=== PATIENT | male | born 1965 | race Caucasian/White ===

== ENCOUNTER 2017-01-27 15:17 | Emergency (ER) | payer OTHER ==
[2017-01-27 15:35] VITALS: BP 163/94
[2017-01-27] MEDS ORDERED: Lidocaine 1% 20 ML MDV INJECT ONE (15:36)
--- NOTE | 2017-01-27 15:42 | EDM.PDOC ---
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 DENIES ANY OTHER INJURY. 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 Constitutional: Reports: No Symptoms HEENT: Reports: No Symptoms Respiratory: Reports: No Symptoms Cardiovascular: Reports: No Symptoms Endocrine: Reports: No Symptoms GI/Abdominal: Reports: No Symptoms : Reports: No Symptoms Musculoskeletal: Reports: Hand Pain Skin: Reports: Wound (LACERATION TO RIGHT PALM) Neurological: Reports: No Symptoms Psychiatric: Reports: No Symptoms Hematologic/Lymphatic: Reports: No Symptoms Immunologic: Reports: No Symptoms ED EXAM, SKIN/RASH Exam: See Below Exam Limited By: No Limitations General Appearance: Alert, WD/WN, No Apparent Distress Throat/Mouth: Normal Inspection, Normal Oropharynx, No Airway Compromise Head: Atraumatic, Normocephalic Respiratory/Chest: No Respiratory Distress Extremities: Other (RIGHT PALM 4 cm linear laceration) Neurological: Alert, Oriented, Normal Cognition Psychiatric: Normal Affect, Normal Mood Skin: Warm, Dry, Normal Color, No Rash Location, Skin: Upper Extremity, Right ED SKIN PROCEDURES - Laceration/Wound Repair Right Hand Lac/Wound length In cm: 4 Appearance: Superficial Distal NVT: Neuro & Vascular Intact, No Tendon Injury Anesthetic Type: Local Local Anesthesia - Lidocaine (Xylocaine): 2% Plain Local Anesthetic Volume: 3cc Skin Prep: Providone-Iodine (Betadine) Exploration/Debridement/Repair: Wound Explored, No Foreign Material Found Closed with: Sutures Suture Size: 4-0 Suture Type: Nylon, Interrupted Course - Vital Signs Last Recorded V/S: Last Vital Signs Temp 99.0 F 01/27/17 15:24 Pulse 105 H 01/27/17 15:24 Resp 16 01/27/17 15:24 BP 163/94 H 01/27/17 15:24 Pulse Ox 95 01/27/17 15:24 - Orders/Labs/Meds Orders: Active Orders 24 hr Category Date Time Status Hand 2V Rt [CR] Stat Exams 01/27/17 15:35 Ordered Lidocaine 1% [Xylocaine 1%] Med 01/27/17 15:36 Once 3 ml INJECT ONETIME ONE - Radiology Interpretation Free Text/Narrative:: HAND XRAY SHOWS NO FRACTURE OF FB - Re-Assessments/Exams Free Text/Narrative Re-Assessment/Exam: 01/27/17 16:07 PT AFEBRILE, NONTOXIC APPEARING, TOLERATED PROCEDURE WELL Departure - Departure Time of Disposition: 16:08 Disposition: Home, Self-Care 01 Clinical Impression: Laceration of hand Qualifiers: Encounter type: initial encounter Foreign body presence: without foreign body Laterality: right Qualified Code(s): S61.411A - Laceration without foreign body of right hand, initial encounter - Discharge Information Instructions: Laceration Care, Adult, [id number], Stitches, Tripp, or Adhesive Wound Closure, [id number] Referrals: PCP,None [Primary Care Provider] - Additional Instructions: FOLLOW UP WITH PCP. SUTURE REMOVAL IN 10 DAYS - My Orders Last 24 Hours: My Active Orders 01/27/17 15:35 Hand 2V Rt [CR] Stat 01/27/17 15:36 Lidocaine 1% [Xylocaine 1%] 3 ml INJECT ONETIME ONE - Assessment/Plan Last 24 Hours: My Active Orders 01/27/17 15:35 Hand 2V Rt [CR] Stat 01/27/17 15:36 Lidocaine 1% [Xylocaine 1%] 3 ml INJECT ONETIME ONE Assessment:: RIGHT PALM LACERATION REPAIR Plan: F/U WITH PCP / SUTURE REMOVAL IN 10 DAYS
== END 2017-01-27 16:22 | disposition home or self-care (01) ==
LOC: KA.ED 15:17
DX: S61.411A Laceration without foreign body of right hand, initial encounter (principal); W23.1XXA Caught, crushed, jammed, or pinched between stationary objects, initial encounter
CPT/HCPCS: 12002; 73120-RT; 99283